=== PATIENT | female | born 1995 | race Caucasian/White ===

== ENCOUNTER 2022-02-12 13:00 | Outpatient (RCR) | payer SELFPAY | END 2022-05-15 09:47 | disposition home or self-care (01) | PROVIDERS: Visit Provider Chiropractor | DX: O26.73 Subluxation of symphysis (pubis) in the puerperium (principal); R10.2 Pelvic and perineal pain; N94.2 Vaginismus; R27.8 Other lack of coordination; Z51.89 Encounter for other specified aftercare | CPT/HCPCS: 97110; 97112; 97140; 97161; 97535 ==

== ENCOUNTER 2024-01-06 09:39 | Outpatient (CLI) | payer SELFPAY | END 2024-01-06 09:40 | disposition home or self-care (01) | LOC: NFLDUCREF 09:39 | DX: R07.89 Other chest pain (principal) | CPT/HCPCS: 85379 ==

== ENCOUNTER 2024-01-06 11:22 | Emergency (ER) | payer SELFPAY ==
[2024-01-06 11:42] VITALS: BP 117/77; PULSE 97; RESP 16; TEMP 36.1; O2SAT 98; BMI 27.5
--- NOTE | 2024-01-06 12:31 | ED_ITS ---
HPI - General Adult General Chief complaint: Chest Pain Stated complaint: Abnormal Blood Test Results Time Seen by Provider: 01/06/24 11:26 History of Present Illness HPI narrative: This 28-year-old female is 34 weeks and comes in with her significant other. They were sent here from urgent care where a D-dimer was acquired and returns elevated at around 2.4. The patient is reporting some chest discomfort but states that she had some food poisoning and had GI symptoms that triggered these symptoms. She states that the pain is somewhat reproducible also when taking a deep breath. She arrives here with normal vital signs. She does not have any history of blood clot or pulmonary embolism. She has not had any recent vascular injury and does not report any unilateral limb swelling. She does report some right upper arm discomfort but does not have any swelling there. Related Data Home Medications ?Medication ?Instructions ?Recorded ?Confirmed No Known Home Medications 01/06/24 Allergies Allergy/AdvReac Type Severity Reaction Status Date / Time No Known Drug Allergies Allergy Verified 01/06/24 10:08 Review of Systems Status of ROS: Reports: 10 or more systems reviewed and unremarkable except as noted in History and below Narrative: Constitutional: No fevers, no weight gain or loss. Eyes: No discharge. No vision changes. HENT: No congestion, no sore throat, no ear pain. Cardiovascular: No palpitations. Respiratory: No shortness of breath, no wheezes, no cough. Gastrointestinal: No abdominal pain, no vomiting, no diarrhea. Genitourinary: No dysuria, no hematuria. Musculoskeletal: Normal range of motion. Skin: No rashes, no pruritis. Neurological: No dizziness, weakness, sensory change, speech change. Endo/Heme/Allergies: No bruising or bleeding. No polydipsia. Pysch: no suicidality, no anxiety, no insomnia. All other systems reviewed and are negative. PFSH PFS Social History Smoking Status: Never smoker How often do you have a drink containing alcohol: never AUDIT-C Alcohol total score: 0 Non-prescribed substance use: denies use Exam Narrative: Exam Narrative: Constitutional: Well-developed, well-nourished, no acute distress. HEENT: Normocephalic, atraumatic. Neck: Normal range of motion. Nontender. Supple. Heart: Regular. No murmurs. Normal rate. Intact distal pulses. Lungs: Clear to auscultation. No chest discomfort. No wheezes, rhonchi, or rales. Abdomen: Normal bowel sounds. Nontender. No rebound tenderness. Genitalia: Deferred. Back: No midline tenderness. Normal range of motion. Extremities: Normal range of motion. No injury. Skin: Intact. No rash. Warm. No erythema or pallor. Neurologic: No altered sensation. No weakness. Alert and oriented. Psychiatric: No suicidality. No anxiety or depression. No insomnia. Nursing notes and vitals signs are reviewed. Const: Vital Signs, click to edit/add: Vital Signs - 24 hr 01/06/24 11:42 Temperature 97 F L Pulse Rate [Pulse Oximeter] 97 Respiratory Rate 16 Blood Pressure [Ri ght Upper Arm] 117/77 Pulse Oximetry 98 Oxygen Delivery Me thod Room Air Course Vital Signs Vital signs: Initial Vital Signs Temperature 97 F L 01/06/24 11:42 Temperature Source Temporal Artery Scan 01/06/24 11:42 Pulse Rate 97 01/06/24 11:42 Pulse Rhythm Regular 01/06/24 11:42 Respiratory Rate 16 01/06/24 11:42 Blood Pressure 117/77 01/06/24 11:42 Blood Pressure Mean 90 01/06/24 11:42 Blood Pressure Position Sitting 01/06/24 11:42 Pulse Oximetry 98 01/06/24 11:42 Oxygen Delivery Method Room Air 01/06/24 11:42 Vital Signs Temperature 97 F L 01/06/24 11:42 Pulse Rate 97 01/06/24 11:42 Respiratory Rate 16 01/06/24 11:42 Blood Pressure 117/77 01/06/24 11:42 Pulse Oximetry 98 01/06/24 11:42 Oxygen Delivery Method Room Air 01/06/24 11:42 Temperature 97 F L 01/06/24 11:42 Pulse Rate 97 01/06/24 11:42 Respiratory Rate 16 01/06/24 11:42 Blood Pressure 117/77 01/06/24 11:42 Pulse Oximetry 98 01/06/24 11:42 Oxygen Delivery Method Room Air 01/06/24 11:42 Medical Decision Making MDM Narrative Medical decision making narrative: This patient was sent here from urgent care because of an elevated D-dimer. The patient reports some reproducible chest discomfort with taking a deep breath and also reports eating some food that caused reflux symptoms. She went to urgent care and a D-dimer was ordered and returns elevated at 2.4. She is 34 weeks . She does not report any shortness of breath and arrives here with normal vital signs. She does not have any prior history of deep venous thrombosis or pulmonary embolism. She had a previous also that went normal throughout its course. I had discussion with the patient and her significant other regarding the role of D-dimer and it is positive and negative predictive value for blood clot. I explained that D-dimer is often elevated in . I did review UpToDate guidelines for adjustment of D-dimer related to weeks gestation of . This patient's D-dimer is yet elevated when looking at that table. I did also review the revised Johnson score which scores 0 for her as to a risk of a deep venous thrombus or pulmonary embolism. According to that tool a D-dimer should not need to be ordered in the 1st place. I did discuss with the patient and her options for going forward now that we do have this elevated resulted. I did also consult the PERC rule which also scores is 0 for her and the value of that tool states that she has no risk for pulmonary embolism. The patient does not have any lower extremity pain or swelling. She does report some pain in her right upper arm but there is no swelling or edema. Having discussed all these things with the patient and her IA nevertheless offered ultrasound and CT imaging despite her 34 weeks of . The patient and her discussed this and decided in a process of shared decision making to be reassured with the predictive evidence of the PERC rule stating that this is not pulmonary embolism. And they wished to be discharged home and are alerted to signs and symptoms that would indicate a need for return and re-evaluation. Discharge Plan Discharge Clinical Impression: Atypical chest pain, Third trimester Additional Instructions: Continue current plans. Follow up with MD or return if symptoms are worsening. Prescriptions: No Action No Known Home Medications Follow Up/Referrals: Provider,Not a Local [Primary Care Provider] -
== END 2024-01-06 13:25 | disposition home or self-care (01) ==
LOC: ED 13:26
PROVIDERS: Emergency Provider Emergency Medicine Emergency Medical Services
DX: R07.9 Chest pain, unspecified (principal); Z3A.34 34 weeks gestation of pregnancy
CPT/HCPCS: 99284